=== PATIENT | male | born 1975 | race Caucasian/White ===

== ENCOUNTER 2018-06-05 08:10 | Emergency (ER) | payer BC ==
[~2018-06-05] VITALS: Ht 165.1 cm; Wt 65.8 kg
[2018-06-05] MEDS ORDERED: KEPPRA500 MG PO (08:27)
[2018-06-05] MEDS ORDERED: CARBAMAZEPINE200 M3 PO (08:28)
[2018-06-05] MEDS ORDERED: LISINOPRIL20 MG PO (08:28)
[2018-06-05] MEDS ORDERED: MECLIZINE HCL25 MG PO (13:20)
--- NOTE | 2018-06-06 06:50 | EKG ---
[facility] [address] [facility] [place] [address] Signed Normal sinus rhythm Normal ECG No previous ECGs available Confirmed by ARASELI RAMOS MD ([id number] on 06/06/2018 6:50:29 AM Electronically Signed By: ARASELI RAMOS MD 06/06/18 0650 PATIENT NAME: SOILA ARRINGTON Electrocardiogram DATE OF : 79 PHYSICIAN: ARASELI RAMOS MD REPORT #: [id number] REPORT IS CONFIDENTIAL AND NOT TO BE RELEASED WITHOUT AUTHORIZATION
== END 2018-06-05 13:27 | disposition home or self-care (01) ==
LOC: ED 08:10
DX: H81.12 Benign paroxysmal vertigo, left ear (principal); I10 Essential (primary) hypertension; Z79.899 Other long term (current) drug therapy
CPT/HCPCS: 70450; 80048; 81001; 84484; 85025; 93005; 93010; 96361; 96374; 99284-25; J3360; J7030

== ENCOUNTER 2018-11-12 11:21 | Emergency (ER) | payer BC ==
[~2018-11-12] VITALS: Ht 165.1 cm; Wt 65.8 kg
[~2018-11-12 11:21] MED LIST: CARBAMAZEPINE200 M3 PO; KEPPRA500 MG PO; LISINOPRIL20 MG PO; MECLIZINE HCL25 MG PO
== END 2018-11-12 13:06 | disposition home or self-care (01) ==
LOC: ED 11:21
DX: R20.2 Paresthesia of skin (principal); I10 Essential (primary) hypertension; Z79.899 Other long term (current) drug therapy
CPT/HCPCS: 70450; 99284-25

== ENCOUNTER 2019-06-30 13:25 | Emergency (ER) | payer BC, OTHER ==
[~2019-06-30] VITALS: Ht 165.1 cm; Wt 65.8 kg
== END 2019-06-30 15:33 | disposition home or self-care (01) ==
LOC: ED 13:25
DX: R51 Headache (principal); I10 Essential (primary) hypertension; Z79.899 Other long term (current) drug therapy
CPT/HCPCS: 70450; 99284-25

== ENCOUNTER 2020-10-05 09:23 | Emergency (ER) | payer BC, OTHER ==
[~2020-10-05] VITALS: Ht 165.1 cm; Wt 65.8 kg
[2020-10-05] MEDS ORDERED: ZYRTEC10 MG PO (09:43)
[2020-10-05] MEDS ORDERED: FLOMAX0.4 MG PO (09:43)
[2020-10-05] MEDS ORDERED: ZONEGRAN100 MG PO (09:44)
[2020-10-05] MEDS ORDERED: KEPPRA1000 MG PO (09:45)
[2020-10-05] MEDS ORDERED: LAMICTAL150 MG PO (09:46)
== END 2020-10-05 11:58 | disposition home or self-care (01) ==
LOC: ED 09:23
DX: R51.9 Headache, unspecified (principal); I10 Essential (primary) hypertension; Z79.899 Other long term (current) drug therapy
CPT/HCPCS: 70450; 99284-25

== ENCOUNTER 2020-12-30 12:26 | Emergency (ER) | payer BC, OTHER ==
[~2020-12-30] VITALS: Ht 165.1 cm; Wt 68.0 kg
[~2020-12-30 12:26] MED LIST changes: +FLOMAX0.4 MG PO; +KEPPRA1000 MG PO; +LAMICTAL150 MG PO; +ZONEGRAN100 MG PO; +ZYRTEC10 MG PO
== END 2020-12-30 14:24 | disposition home or self-care (01) ==
LOC: ED 12:26
DX: G40.109 Localization-related (focal) (partial) symptomatic epilepsy and epileptic syndromes with simple partial seizures, not intractable, without status epilepticus (principal); I10 Essential (primary) hypertension; Z79.899 Other long term (current) drug therapy
CPT/HCPCS: 70450; 80053; 83735; 85025; 99284-25

== ENCOUNTER 2021-05-16 08:11 | Emergency (ER) | payer OTHER ==
[~2021-05-16] VITALS: Ht 165.1 cm; Wt 67.6 kg
[2021-05-16] MEDS ORDERED: ZONISAMIDE100 MG PO (08:31)
[2021-05-16] MEDS ORDERED: LAMOTRIGINE150 MG PO (08:34)
== END 2021-05-16 09:55 | disposition home or self-care (01) ==
LOC: ED 08:11
DX: R51.9 Headache, unspecified (principal); D18.09 Hemangioma of other sites; I10 Essential (primary) hypertension; Z79.899 Other long term (current) drug therapy
CPT/HCPCS: 70450; 99284-25

== ENCOUNTER 2022-02-10 13:28 | Emergency (ER) | payer OTHER ==
[~2022-02-10] VITALS: Ht 165.1 cm; Wt 68.0 kg
[~2022-02-10 13:28] MED LIST changes: +LAMOTRIGINE150 MG PO; +ZONISAMIDE100 MG PO
[2022-02-10] MEDS ORDERED: ZONEGRAN25 MG PO (16:10)
[2022-02-10] MEDS ORDERED: ZONEGRAN100 MG PO (16:11)
[2022-02-10] MEDS ORDERED: HYDROCODON-ACE1 EA10 PO (18:21)
== END 2022-02-10 18:28 | disposition home or self-care (01) ==
LOC: ED 13:28
DX: S20.211A Contusion of right front wall of thorax, initial encounter (principal); I10 Essential (primary) hypertension; Z79.899 Other long term (current) drug therapy; W18.30XA Fall on same level, unspecified, initial encounter
CPT/HCPCS: 71101; 99283-25

== ENCOUNTER 2022-11-21 12:13 | Emergency (ER) | payer OTHER ==
[~2022-11-21] VITALS: Ht 165.1 cm; Wt 67.8 kg
[~2022-11-21 12:13] MED LIST changes: +HYDROCODON-ACE1 EA10 PO; +ZONEGRAN25 MG PO
[2022-11-21] MEDS ORDERED: LISINOPRIL10 MG PO (12:32)
[2022-11-21] MEDS ORDERED: ZONISAMIDE100 MG PO (12:32)
[2022-11-21] MEDS ORDERED: TAMSULOSIN HCL0.4 MG PO (12:32)
[2022-11-21] MEDS ORDERED: LAMOTRIGINE100 MG PO (12:32)
[2022-11-21] MEDS ORDERED: PREGABALIN300 MG PO (12:47)
[2022-11-21 13:46] LABS: EOSINOPHILS 0.9 % (0-6); HEMATOCRIT 42.6 % (35.0-50.0); HEMOGLOBIN 14.4 g/dL (12.0-18.0); LYMPHOCYTES 22.7 % (24-44); MCH 31.5 (27-36); MCHC 33.7 g/dl (30-36); MCV 93.4 fl (81-99); MONOCYTES 8.3 % (0-12); NEUTROPHILS 67.1 % (39-80); PLATELET COUNT 191 K/uL (140-440); RBC 4.57 M/ul (4.3-5.7); RDW 12.7 (10.5-15.0)
[2022-11-21 13:56] LABS: ALBUMIN 4.4 g/dL (3.4-5.0); ALBUMIN/GLOBULIN RATIO 1.38 (1.1-2.4); ANION GAP 11.5 (7-21); BILIRUBIN, TOTAL 0.4 ng/dL (0.2-1.0); BUN/CREATININE RATIO 14.42 (6.0-28.6); CALCIUM 8.7 mg/dL (8.5-10.1); CREATININE, SERUM 1.04 mg/dL (0.70-1.30); POTASSIUM 4.5 mmol/L (3.5-5.1); PROTEIN, TOTAL 7.6 g/dL (6.4-8.2)
[2022-11-21 18:44] VITALS: BP 117/80
[2022-11-22 11:14] LABS: KEPPRA (LEVETIRACETAM) <2 ug/mL (10-40)
[2022-11-22 11:33] LABS: LAMOTRIGINE 14.1 ug/mL (3.0-15.0)
== END 2022-11-21 18:46 | disposition home or self-care (01) ==
LOC: ED 12:13
PROVIDERS: Emergency Medicine
DX: G40.909 Epilepsy, unspecified, not intractable, without status epilepticus (principal); Q28.3 Other malformations of cerebral vessels; I10 Essential (primary) hypertension; Z79.899 Other long term (current) drug therapy
CPT/HCPCS: 36415; 70450; 70551; 70553; 80053; 80175; 80177; 85025; 99284-25; A9270-GY; A9577